=== PATIENT | male | born 1990 | race American Indian/Alaskan Native ===

== ENCOUNTER 2021-02-15 15:37 | Emergency (ER) | payer SELFPAY ==
[2021-02-15 15:46] VITALS: BP 124/73
[2021-02-15] MEDS ORDERED: LIDOCAINE-MPF (1%) 10 MG/1 ML VIAL 5 ML INFILTRATI ONE (17:43)
[2021-02-15] MEDS ORDERED: AZITHROMYCIN 250 MG TAB PO STA (17:45)
--- NOTE | 2021-02-15 17:48 | Emergency Department Report ---
ED Male HPI - General Chief complaint: Urogenital-Male Stated complaint: CHECK FOR STD'S Time Seen by Provider: 02/15/21 17:39 Source: patient Mode of arrival: Ambulatory Limitations: No Limitations - History of Present Illness Initial comments: Risky sexual behavior with possible STD exposure. Complaint: penile discharge, dysuria -: Gradual, days(s) (4) Location: penis Radiation: none Severity: mild Quality: burning Consistency: constant Improves with: none Worsens with: urination new sexual partner (Has had multiple sexual partners with risky sexual behavior) other. denies: discharge, urinary retention, blood in urine, incontinence - Related Data Sexually active: Yes Previous Rx's Medication Instructions Recorded Last Taken Type metroNIDAZOLE [Flagyl] 2,000 mg PO ONCE.ED #4 tablet 02/15/21 Unknown Rx Allergies Allergy/AdvReac Type Severity Reaction Status Date / Time No Known Allergies Allergy Unverified 02/15/21 15:46 ED Review of Systems ROS: Stated complaint: CHECK FOR STD'S Other details as noted in HPI Comment: All other systems reviewed and negative ED Past Medical Hx - Medications Home Medications: Home Medications Medication Instructions Recorded Confirmed Last Taken Type metroNIDAZOLE [Flagyl] 2,000 mg PO ONCE.ED #4 tablet 02/15/21 Unknown Rx ED Physical Exam - General Limitations: No Limitations General appearance: alert, in no apparent distress - Head Head exam: Present: atraumatic, normocephalic - Eye Eye exam: Present: normal appearance, PERRL, EOMI - ENT ENT exam: Present: mucous membranes moist - Neck Neck exam: Present: normal inspection - Respiratory Respiratory exam: Present: normal lung sounds bilaterally. Absent: respiratory distress - Cardiovascular Cardiovascular Exam: Present: regular rate, normal rhythm. Absent: systolic murmur, diastolic murmur, rubs, gallop - GI/Abdominal GI/Abdominal exam: Present: soft, normal bowel sounds - Rectal Rectal exam: Present: deferred - Extremities Exam Extremities exam: Present: normal inspection - Back Exam Back exam: Present: normal inspection - Neurological Exam Neurological exam: Present: alert, oriented X3 - Psychiatric Psychiatric exam: Present: normal affect, normal mood - Skin Skin exam: Present: warm, dry, intact, normal color. Absent: rash ED Course Vital Signs 02/15/21 15:45 Temperature 98.7 F Pulse Rate 96 H Respiratory 16 Rate Blood Pressure 124/73 [Right] O2 Sat by Pulse 100 Oximetry ED Medical Decision Making - Medical Decision Making This 30-year-old patient presents to the emergency department with symptoms and history consistent with possible STI . No systemic symptoms. Not septic. He is is well-appearing. Low suspicion for acute pyelonephritis given the lack of fever, CVA tenderness, or systemic features. Low suspicion for for kidney stone or infected stone. No no indications for systemic labs or imaging at this time. Advised on importance of follow-up with the primary care provider on health department for complete evaluation for sexual transmitted infection also to inform his partners of his visit so that they could you may receive treatment Critical care attestation.: If time is entered above; I have spent that time in minutes in the direct care of this critically ill patient, excluding procedure time. ED Disposition Clinical Impression: Possible exposure to STD, Dysuria Disposition: 01 HOME / SELF CARE / HOMELESS Is pt being admited?: No Does the pt Need Aspirin: No Condition: Stable Instructions: Chlamydia, Male, Dysuria, Safe Sex, Gonorrhea Prescriptions: metroNIDAZOLE [Flagyl] 2,000 mg PO ONCE.ED #4 tablet Referrals: PRIMARY CARE, [Primary Care Provider] - 3-5 Days [facility] [Outside] - 3-5 Days
== END 2021-02-15 18:25 | disposition home or self-care (01) ==
LOC: ED 15:37
DX: Z20.2 Contact with and (suspected) exposure to infections with a predominantly sexual mode of transmission (principal); R30.0 Dysuria
CPT/HCPCS: 96372; 99282; J0696; J3490